=== PATIENT | female | born 1950 | race Caucasian/White ===

== ENCOUNTER 2019-11-27 12:28 | Inpatient (IN) | payer OTHER ==
[~2019-11-27] VITALS: Ht 152.4 cm; Wt 81.6 kg
[2019-11-27] MEDS ORDERED: SYNTHROID75 MCG (12:53)
[2019-11-27] MEDS ORDERED: IBRANCE100 MG (12:53)
[2019-11-27] MEDS ORDERED: LETROZOLE2.5 MG (12:54)
[2019-11-27] MEDS ORDERED: GABAPENTIN300 M2 (12:54)
[2019-11-27] MEDS ORDERED: TRAZODONE HCL150 MG (12:55)
[2019-11-27] MEDS ORDERED: CLONAZEPAM1 MG (12:55)
--- NOTE | 2019-11-27 12:56 | NUR ---
PTE REFIERE FISURA EN AREA DEL ANO REFERIDO POR DR CORY WILSON SE ROQUE S/V JESSICA PATINO EN AREA DE OBSERVACION
--- NOTE | 2019-11-27 14:53 | NUR ---
EVALUADA POR LA SE ORIENTA SOBRE TRATAMIENTO MEDICO POR LE EXTRAE MUESTRAS DE Z[facility] Y SE ENVIAN AL LAB[facility]ATOR[facility]. SE MANTIENEN EN OBSERVACION.
[2019-11-29] MEDS ORDERED: RECTICARE30 GM TOP (09:03)
[2019-11-29] MEDS ORDERED: PERCOCET 5-3251 EACH PO (09:03)
[2019-11-29] MEDS ORDERED: COLACE100 MG PO (09:03)
[2019-11-29] MEDS ORDERED: POLY119PG PO (09:03)
== END 2019-11-29 10:19 | disposition home or self-care (01) | DRG 348 ==
LOC: ER → SURH 14:59 → SEC-K 14:59 → O/R 11-28 13:06 → SURH 11-28 17:01
PROVIDERS: ADMIT Surgery; ATTEND Surgery
PROC: 0DU Gastrointestinal System, Supplement (ICD-10-PCS; principal; 2019-11-28 13:00)
DX: K60.1 Chronic anal fissure (principal); K62.5 Hemorrhage of anus and rectum; C79.51 Secondary malignant neoplasm of bone; C50.919 Malignant neoplasm of unspecified site of unspecified female breast; Z20.828 Contact with and (suspected) exposure to other viral communicable diseases